=== PATIENT | male | born 1970 ===

== ENCOUNTER 2022-10-05 07:13 | Emergency (ER) | payer OTHER ==
[~2022-10-05] VITALS: Ht 170.2 cm; Wt 79.4 kg
[2022-10-05 07:26] VITALS: BP 160/111
[2022-10-05] MEDS ORDERED: Cleocin HCl300 MG PO (07:42)
== END 2022-10-05 07:59 | disposition home or self-care (01) ==
LOC: ER 07:13
DX: K02.9 Dental caries, unspecified (principal); F19.20 Other psychoactive substance dependence, uncomplicated; Z71.41 Alcohol abuse counseling and surveillance of alcoholic; Z88.0 Allergy status to penicillin
CPT/HCPCS: 99282